=== PATIENT | female | born 1980 | race Caucasian/White ===

== ENCOUNTER 2020-01-05 19:03 | Emergency (ER) | payer OTHER ==
--- NOTE | 2020-01-05 20:42 | ED ---
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 Therefore eval laceration and postexposure prophylaxis. - History of Current Complaint Stated Complaint: HAND LAC PER PT Time Seen by Provider: 01/05/20 20:40 Hx Obtained From: Patient Mechanism of Injury: Sharp/Blunt Trauma Aggravating: Nothing Alleviating: Nothing Onset Severity: Severe Current Severity: Severe Pain Intensity: 7 Pain Scale Used: 0-10 Numeric Associated Signs & Symptoms: Negative - Allergy/Home Medications Allergies/Adverse Reactions: Allergies Allergy/AdvReac Type Severity Reaction Status Date / Time Sulfa (Sulfonamide AdvReac Hives Verified 01/05/20 19:04 Antibiotics) Home Medications: Home Medications Raltegravir* [Isentress*] 400 mg PO BID 21 Days #42 tab 01/05/20 [Rx] Tenofovir/Emtricitab 200/300 * [Truvada 200/300 mg*] 1 tab PO DAILY 21 Days #21 tab 01/05/20 [Rx] PMH/Surg Hx/FS Hx/Imm Hx Endocrine/Hematology History: Denies: Hx Anticoagulant Therapy Cardiovascular History: Denies: Hx Pacemaker/ICD History: Denies: Hx Dialysis Sensory History: Denies: Hx Eye Prosthesis Opthamlomology History: Denies: Hx Legally Blind EENT History: Denies: Hx Deafness Neurological History: Denies: Hx Developmental Delay Infectious Disease History: No Infectious Disease History: Denies: Traveled Outside the [place] in Last 30 Days - Family History Known Family History: Positive: Non-Contributory - Social History Alcohol Use: Occasionally Hx Substance Use: No Hx Tobacco Use: No Review of Systems Constitutional: Negative Eyes: Negative ENT: Negative Cardiovascular: Negative Respiratory: Negative Gastrointestinal: Negative Genitourinary: Negative Musculoskeletal: Negative Skin: Other Neurological/Mental Status: Negative Psychological: Normal All Other Systems Reviewed And Are Negative: Yes Physical Exam Triage Information Reviewed: Yes Vital Signs On Initial Exam: Initial Vitals Temp Pulse Resp BP Pulse Ox 98.4 F 96 18 147/96 98 01/05/20 19:03 01/05/20 19:03 01/05/20 19:03 01/05/20 19:03 01/05/20 19:03 Vital Signs Reviewed: Yes Appearance: Positive: Well-Appearing Skin: Positive: Warm Head/Face: Positive: Normal Head/Face Inspection Eyes: Positive: Normal Neck: Positive: Supple Respiratory/Lung Sounds: Positive: Clear to Auscultation Cardiovascular: Positive: Normal Abdomen Description: Positive: Nontender Musculoskeletal: Positive: Normal Neurological: Positive: Normal Psychiatric: Positive: Normal AVPU Assessment: Alert - Major Coma Scale Best Eye Response: 4 - Spontaneous Best Motor Response: 6 - Obeys Commands Best Verbal Response: 5 - Oriented Coma Scale Total: 15 Procedures - Sedation Patient Received Moderate/Deep Sedation with Procedure: No - Laceration/Wound Repair 1 Location: upper extremity - right hand Description: Linear Anesthesia: Digital, 1.0% Length, Depth and Shape: 1cm x .5cm Betadine Prep?: Yes Laceration/Wound Explored: clean Debridement: minimal Number of Sutures: 2 - 4. 0 Ethilon. Layer Closure?: No Sterile Dressing Applied?: No Diagnostics - Vital Signs Vital Signs Temp Pulse Resp BP Pulse Ox 01/05/20 19:03 98.4 F 96 18 147/96 98 - Laboratory Result Diagrams: 01/05/20 21:10 01/05/20 21:10 Lab Statement: Any lab studies that have been ordered have been reviewed, and results considered in the medical decision making process. 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 Therefore eval laceration and postexposure prophylaxis. Wound was cleaned extensively in OR per patient. Labs drawn. Rx for postexposure prophylaxis. - Clinical Impression Provider Diagnoses: Laceration, History of exposure to blood or body fluid Discharge ED - Sign-Out/Discharge Documenting (check all that apply): Patient Departure - Discharge Plan Condition: Stable Disposition: HOME Prescriptions: Raltegravir* [Isentress*] 400 mg PO BID 21 Days #42 tab Tenofovir/Emtricitab 200/300 * [Truvada 200/300 mg*] 1 tab PO DAILY 21 Days #21 tab Patient Education Materials: Care For Your Stitches (ED), Laceration (ED), Postexposure Prophylaxis (ED) Referrals: No Primary Care Phys,NOPCP [Primary Care Provider] - Additional Instructions: You will be provided with 1 week's worth of postexposure prophylaxis meds here in ED. Remaining 3 weeks available at [facility] pharmacy. Keep wound clean and dry and protected. You may wash wound with warm running water and soap. Do not submerge for a few days. Sutures out in 10 days. Return to the ED for any new or worsening symptoms. Follow-up with primary care. - Billing Disposition and Condition Condition: STABLE Disposition: Home
[2020-01-05] MEDS ORDERED: Raltegravir* 400 MG TAB PO ONE (20:48)
[2020-01-05] MEDS ORDERED: Tenofovir/Emtricitab 200/300 * TAB PO ONE (20:48)
[2020-01-05] MEDS ORDERED: Raltegravir* 400 MG TAB PO SCH (21:00)
[2020-01-05 21:32] LABS: ABS Lymphocytes 2.9 10^3/ul (1.0-4.8); ABS Monocytes 0.7 10^3/ul (0-0.8); ABS Neutrophils 6.1 10^3/ul (1.5-7.7); Eosinophil % 0.2 %; Hematocrit 41 % (35-47); Hemoglobin 13.6 g/dL (12.0-16.0); Lymphocyte % 30.1 %; Mean Corpuscular HGB Conc 34 g/dL (31-36); Mean Corpuscular Hemoglobin 31 pg (27-31); Mean Corpuscular Volume 92 fL (80-97); Platelet Count 272 10^3/uL (150-450); Red Blood Count 4.44 10^6 /uL (3.70-4.87); Red Cell Distribution Width 13 % (10-15); White Blood Count 9.7 10^3/uL (3.5-10.8)
[2020-01-05 21:38] LABS: ALT 21 U/L (7-52); AST 23 U/L (13-39); Albumin 4.7 g/dL (3.2-5.2); Albumin/Globulin Ratio 1.7 (1-3); Alkaline Phosphatase 73 U/L (34-104); Anion Gap 7 mmol/L (2-11); BUN/Creatinine Ratio 16.9 (8-20); Blood Urea Nitrogen 14 mg/dL (6-24); CO2 Carbon Dioxide 26 mmol/L (22-32); Calcium 9.5 mg/dL (8.6-10.3); Chloride 104 mmol/L (101-111); EGFR African American 91.7 (>60); EGFR Non-African American 75.8 (>60); Globulin 2.8 g/dL (2-4); Glucose 75 mg/dL (70-100); Sodium 137 mmol/L (135-145); Total Protein 7.5 g/dL (6.4-8.9)
[2020-01-05 21:57] LABS: HCG Pregnancy < 0.60 mIU/mL
[2020-01-05] MEDS ORDERED: Tenofovir/Emtricitab 200/300 * TAB PO SCH (22:00)
[2020-01-05 22:13] VITALS: BP 129/92
[2020-01-06 11:11] LABS: Hepatitis B Surface Antigen Nonreactive (Nonreactive)
[2020-01-06 11:19] LABS: HIV 4th Generation Nonreactive (Nonreactive)
[2020-01-06 11:28] LABS: Hepatitis B Surface Ab Immune (Immune); Hepatitis C Antibody Negative (Negative)
== END 2020-01-05 22:11 | disposition home or self-care (01) ==
LOC: ED 19:03
DX: S61.411A Laceration without foreign body of right hand, initial encounter (principal); Z77.21 Contact with and (suspected) exposure to potentially hazardous body fluids; W45.8XXA Other foreign body or object entering through skin, initial encounter; Y92.531 Health care provider office as the place of occurrence of the external cause; Z88.2 Allergy status to sulfonamides; Z79.810 Long term (current) use of selective estrogen receptor modulators (SERMs); Z11.4 Encounter for screening for human immunodeficiency virus [HIV]
CPT/HCPCS: 12001; 36415; 80053; 84702; 85025; 86706; 86803; 87340; 87389; 99282